=== PATIENT | male | born 1975 | race Caucasian/White ===

== ENCOUNTER 2018-09-05 05:48 | Emergency (ER) | payer MEDICAID ==
[~2018-09-05] VITALS: Ht 185.4 cm; Wt 100.7 kg
[2018-09-05 07:12] VITALS: BP 116/76
[2018-09-05 07:28] LABS: BASOPHIL % 0.3 % (0-2); PLATELET COUNT 256 x10^3mcL (130-400); RED CELL DISTRIBUTION WIDTH 14.5 % (11.5-14.5)
[2018-09-05 07:32] LABS: CALCIUM 8.4 mg/dL (8.5-10.1); CARBON DIOXIDE 27.2 mmol/L (21-32); CHLORIDE SERUM 105 mmol/L (98-107); CREATININE SERUM 0.8 mg/dL (0.7-1.3); GFR1 > 60 mL/min; GLUCOSE SERUM 114 mg/dL (74-106); POTASSIUM SERUM 4.2 mmol/L (3.5-5.1); SODIUM SERUM 139 mmol/L (136-145)
[2018-09-05 07:37] LABS: ALBUMIN 3.6 g/dL (3.4-5.0); ALKALINE PHOSPHATASE 58 U/L (46-116); ALT/SGPT 37 U/L (16-63); AST/SGOT 13 U/L (15-37); BILIRUBIN TOTAL 0.76 mg/dL (0.20-1.00); TOTAL PROTEIN, SERUM 7.3 g/dL (6.4-8.2)
[2018-09-05 07:43] LABS: FREE T4 0.88 ng/dL (0.76-1.46); FREE THYROXINE INDEX 1.8 ug/dL (1.4-4.5); T4(THYROXINE) 4.9 ug/dL (4.7-13.3)
[2018-09-05 07:54] LABS: T3 TOTAL 0.83 ng/mL
[2018-09-05 08:22] LABS: microscopic required? NO
[2018-09-05 09:12] LABS: UA SPECIFIC GRAVITY >=1.030 (1.005-1.035); urine erythrocyte NEGATIVE (NEGATIVE)
== END 2018-09-05 09:00 | disposition home or self-care (01) ==
LOC: ED 05:48
PROVIDERS: Emergency Medicine
DX: T78.49XA Other allergy, initial encounter (principal); R10.33 Periumbilical pain; X58.XXXA Exposure to other specified factors, initial encounter
CPT/HCPCS: 84439; J1200; J2930; J3490; Q0092